=== PATIENT | female | born 1955 | race Caucasian/White ===

== ENCOUNTER 2025-05-12 18:52 | Emergency (ER) | payer MEDICARE, SELFPAY ==
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
[2025-05-12 18:53] VITALS: BP 154/81; PULSE 64; RESP 16; TEMP 36.6; O2SAT 100
--- OUTSIDE RECORDS SUMMARY | 2025-05-12 18:54 | XMS_ITS | Data Portability ---
Author Organization [place] - [facility] [place], Main Office Address [address] [place] [address] Assessment Encounter Date Assessment Date Assessment LastModified by Organization Details LastModified Time 05/17/2023 05/17/2023 Medrol Dosepak right ear impacted with cerumen needs to get that flushed out by ENT or ear drops before any further evaluation blood work has been ordered she will let me know how she is doing about 2 weeks after the Medrol Dosepak all other diagnosis discussed patient agreeable to plan. Risk benefits of diclofenac on a cardiac stroke PA also kidney (GI bleeding discussed she says she only thing that allows her joints to basically function she accepts the risk [email or web address] Not available 05/17/2023 20:23:06 11/20/2023 11/20/2023 Blood work continue current therapy diagnosis assessment plan have been discussed [email or web address] Not available 12/03/2023 09:42:50 Plan of Treatment Reminders Order Date Submit Date Provider Last Modified By Organization Details Last Modified Time Details Appointments None recorded. Lab CBC w/ auto diff 2022 023 [facility] (Lab), [address] [place], [address], 14:58:12 lipid panel, serum 2022 023 [facility] (Lab), [address] [place], [address], 15:01:37 CMP, serum or plasma 2022 023 [facility] (Lab), [address] [place], [address], 3 15:01:57 Referral None recorded. Procedures None recorded. Surgeries None recorded. Imaging None recorded. Medication Orders diclofenac sodium 75 mg tablet,geovani yed release [address] [facility]84, [address], [place], [id number], 4 15:24:01 esomeprazol e magnesium 40 mg capsule,del ayed release [address] [facility]60908, [address], [place], [id number], 4 15:24:01 gabapentin 600 mg tablet [address] [facility]50284, [address], [place], [id number], 4 15:24:01 lorazepam 1 mg tablet 2023 024 [facility] #43611, [address], [place], [id number], 4 09:43:43 metoprolol tartrate 25 mg tablet [address] [facility]11999, [address], [place], [id number], 4 15:24:01 rizatriptan 10 mg tablet [address] [facility]51239, [address], [place], [id number], 4 15:24:01 rosuvastati n 20 mg tablet [address] [facility]92313, [address], [place], [id number], 4 15:24:01 diclofenac sodium 75 mg tablet,geovani yed release [address] [facility]11191, [address], [place], [id number], 3 14:48:37 esomeprazol e magnesium 40 mg capsule,del ayed release [address] [facility]23503, [address], [place], [id number], 3 14:48:37 gabapentin 600 mg tablet [address] [facility]71239, [address], [place], [id number], 3 14:48:37 metoprolol tartrate 25 mg tablet [address] [facility]65578, [address], [place], [id number], 3 14:48:37 rizatriptan 10 mg tablet [address] [facility]07588, [address], [place], [id number], 3 14:48:37 rosuvastati n 20 mg tablet 2022 023 [address] [facility], [address], [place], [id number], 3 14:48:37 Patient TargetsNo targets recorded. Patient InstructionsNo instructions recorded. Reason for Referral None Reported. Results Created Date Observation Date Name Description Value Unit Range Abnormal Flag Note LastModifiedBy Organization Detail LastModifiedTime 05/17/20 23 05/17/2023 CBC/C OMPLE TE BLD COUNT W/DIF F white blood cells 10.2 x10'3 /uL 4.2-10 .8 Not Available [facility] (Lab) [address] [place], [address], 05/17/2023 14:58:11 05/17/20 23 05/17/2023 CBC/C OMPLE TE BLD COUNT W/DIF F red blood cells 4.93 x10'6 /uL 3.80-5 .20 Not Available [facility] (Lab) [address] [place], [address], 05/17/2023 14:58:11 05/17/20 23 05/17/2023 CBC/C OMPLE TE BLD COUNT W/DIF F hemoglobin 14.7 g/dL 12.0-1 5.6 Not Available [facility] (Lab) [address] [place], [address], 05/17/2023 14:58:11 05/17/20 23 05/17/2023 CBC/C OMPLE TE BLD COUNT W/DIF F hematocrit 46.1 % 35.7-4 5.7 high Not Available [facility] (Lab) [address] [place], [address], 05/17/2023 14:58:11 05/17/20 23 05/17/2023 CBC/C OMPLE TE BLD COUNT W/DIF F mean red cell volume 93.5 fL 82.0-9 9.0 Not Available [facility] (Lab) [address] [place], [address], 05/17/2023 14:58:11 05/17/20 23 05/17/2023 CBC/C OMPLE TE BLD COUNT W/DIF F mean red cell hemoglobin 29.8 pg 27.0-3 3.0 Not Available [facility] (Lab) [address] [facility] [place], [address], 05/17/2023 14:58:11 05/17/20 23 05/17/2023 CBC/C OMPLE TE BLD COUNT W/DIF F mean RBC HGB concentratio n 31.9 g/dL 31.0-3 6.0 Not Available [facility] (Lab) [address] [facility] [place], [address], 05/17/2023 14:58:11 05/17/20 23 05/17/2023 CBC/C OMPLE TE BLD COUNT W/DIF F red cell distribution width 13.3 % 11.8-1 5.5 Not Available [facility] (Lab) [address] [place], [address], 05/17/2023 14:58:11 05/17/20 23 05/17/2023 CBC/C OMPLE TE BLD COUNT W/DIF F platelets 224 x10'3 /uL 150-40 0 Not Available [facility] (Lab) [address] [place], [address], 05/17/2023 14:58:11 05/17/20 23 05/17/2023 CBC/C OMPLE TE BLD COUNT W/DIF F mean platelet volume 12.1 fL 9.0-12 .4 Not Available [facility] (Lab) [address] [place], [address], 05/17/2023 14:58:11 05/17/20 23 05/17/2023 CBC/C OMPLE TE BLD COUNT W/DIF F neutrophils 59.3 % 39.0-7 2.0 Not Available [facility] (Lab) [address] [place], [address], 05/17/2023 14:58:11 05/17/20 23 05/17/2023 CBC/C OMPLE TE BLD COUNT W/DIF F lymphocytes 29.6 % 16.0-4 7.0 Not Available [facility] (Lab) [address] [place], [address], 05/17/2023 14:58:11 05/17/20 23 05/17/2023 CBC/C OMPLE TE BLD COUNT W/DIF F monocytes 7.2 % 5.0-12 .0 Not Available [facility] (Lab) [address] [place], [address], 05/17/2023 14:58:11 05/17/2005/17/2023 CBC/C OMPLE TE BLD COUNT W/DIF F eosinophils 2.9 % 1.0-7. 0 Not Available [facility] (Lab) [address] [place], [address], 05/17/2023 14:58:11 05/17/20 23 05/17/2023 CBC/C OMPLE TE BLD COUNT W/DIF F basophils 0.7 % 0.0-2. 0 Not Available [facility] (Lab) [address] [place], [address], 05/17/2023 14:58:11 05/17/2005/17/2023 CBC/C OMPLE TE BLD COUNT W/DIF F immature granulocytes 0.3 % 0.00-0 .50 Not Available [facility] (Lab) [address] [place], [address], 05/17/2023 14:58:11 05/17/2005/17/2023 CBC/C OMPLE TE BLD COUNT W/DIF F neutrophils, absolute count 6.05 x10'3 /uL 1.5-8. 0 Not Available [facility] (Lab) [address] [place], [address], 05/17/2023 14:58:11 05/17/20 23 05/17/2023 CBC/C OMPLE TE BLD COUNT W/DIF F lymphocytes, absolute count 3.03 x10'3 /uL 1.07-3 .43 Not Available [facility] (Lab) [address] [place], [address], 05/17/2023 14:58:11 05/17/20 23 05/17/2023 CBC/C OMPLE TE BLD COUNT W/DIF F monocytes, absolute count 0.74 x10'3 /uL 0.29-0 .99 Not Available [facility] (Lab) [address] [place], [address], 05/17/2023 14:58:11 05/17/2005/17/2023 CBC/C OMPLE TE BLD COUNT W/DIF F eosinophils, absolute count 0.30 x10'3 /uL 0.02-0 .53 Not Available [facility] (Lab) [address] [place], [address], 05/17/2023 14:58:11 05/17/20 23 05/17/2023 CBC/C OMPLE TE BLD COUNT W/DIF F basophils, absolute count 0.07 x10'3 /uL 0.01-0 .08 Not Available [facility] (Lab) [address] [place], [address], 05/17/2023 14:58:11 05/17/20 23 05/17/2023 CBC/C OMPLE TE BLD COUNT W/DIF F immature granulocytes ,absolute 0.03 x10'3 /uL 0.00-0 .05 Not Available [facility] (Lab) [address] [place], [address], 05/17/2023 14:58:11 05/17/20 23 05/17/2023 CBC/C OMPLE TE BLD COUNT W/DIF F nucleated red blood cells 0.0 % -0 Not Available [facility] (Lab) [address] [place], [address], 05/17/2023 14:58:11 05/17/20 23 05/17/2023 CBC/C OMPLE TE BLD COUNT W/DIF F NRBC# 0.00 x10'3 /uL Not Available [facility] (Lab) [address] [place] [address], [address], 05/17/2023 14:58:11 05/17/20 23 05/17/2023 LIPID PANEL cholesterol 185 mg/dL 140-19 9 NIH MARY NSUS RECOM MENDA TION FOR FERNANDA STERO L: ADULT CHILD LOW RISK: <200 <170 BORDE RLINE : <200- 239 ----- HIGH RISK: >240 >200 Not Available [facility] (Lab) [address] [place] [address], [address], 05/17/2023 15:01:37 05/17/20 23 05/17/2023 LIPID PANEL triglyceride s 165 mg/dL 0-150 high NIH MARY NSUS REPOR T RECOM MENDA TION FOR TRIGL YCERI YOEL: ADULT CHILD LOW RISK: <150 ----- BODER LINE: 150-1 99 ----- HIGH RISK: >200 ----- Not Available [facility] (Lab) [address] [place], [address], 05/17/2023 15:01:37 05/17/20 23 05/17/2023 LIPID PANEL HDL cholesterol 67 mg/dL 40- Not Available [facility] (Lab) [address] [place] [address], [address], 05/17/2023 15:01:37 05/17/20 23 05/17/2023 LIPID PANEL LDL cholesterol, calculated 85 mg/dL 0-130 NIH MARY NSUS REPOR T RECOM MENDA TIONS FOR LDL: ADULT CHILD LOW RISK <130 <110 (OPTI MAL LDL) <100 ----- BORDE RLINE : 130-1 59 ----- HIGH RISK: >160 >130 A TRIGL YCERI DE RESUL T >400 INVAL IDATE S THE CALCU LATIO N FOR LDL FRACT IONAT ION - THE LDL RESUL T WILL NOT BE REPOR ARTIE. Not Available [facility] (Lab) [address] [place], [address], 05/17/2023 15:01:37 05/17/20 23 05/17/2023 COMPR EHENS STEPHANIE METAB OLIC PANEL sodium 143 mmol/ L 137-14 5 Not Available [facility] (Lab) [address] [place], [address], 05/17/2023 15:01:57 05/17/20 23 05/17/2023 COMPR EHENS STEPHANIE METAB OLIC PANEL potassium 4.2 mmol/ L 3.5-5. 1 Not Available [facility] (Lab) [address] [place], [address], 05/17/2023 15:01:57 05/17/20 23 05/17/2023 COMPR EHENS STEPHANIE METAB OLIC PANEL chloride 106 mmol/ L 98-107 Not Available [facility] (Lab) [address] [place], [address], 05/17/2023 15:01:57 05/17/20 23 05/17/2023 COMPR EHENS STEPHANIE METAB OLIC PANEL carbon dioxide 29 mmol/ L 22-30 Not Available [facility] (Lab) [address] [place], [address], 05/17/2023 15:01:57 05/17/20 23 05/17/2023 COMPR EHENS STEPHANIE METAB OLIC PANEL anion gap 12.2 mmol/ L 14-22 low Not Available [facility] (Lab) [address] [place], [address], 05/17/2023 15:01:57 05/17/20 23 05/17/2023 COMPR EHENS STEPHANIE METAB OLIC PANEL glucose 90 mg/dL 70-99 Not Available [facility] (Lab) [address] [place], [address], 05/17/2023 15:01:57 05/17/20 23 05/17/2023 COMPR EHENS STEPHANIE METAB OLIC PANEL BUN 26 mg/dL 8-19 high Not Available [facility] (Lab) [address] [facility] [place], [address], 05/17/2023 15:01:57 05/17/20 23 05/17/2023 COMPR EHENS STEPHANIE METAB OLIC PANEL creatinine 0.62 mg/dL 0.66-1 .25 low Not Available [facility] (Lab) [address] [place], [address], 05/17/2023 15:01:57 05/17/20 23 05/17/2023 COMPR EHENS STEPHANIE METAB OLIC PANEL GFR >60 Refer ence Range : Adel ge GFR Healt hy Adult : >60 mL/mi n/1.7 3 m2 Chron ic Kidne y Disea se: 15-60 mL/mi n/1.7 3 m2 Kidne y Failu re: <15/m L/min /1.73 m2 www.n iddk. nih.g ov The MDRD study equat ion has not been valid ated in child rain <18 years of age; pregn ant women ; the elder ly >85 years of age; or in some racia l or ethni c subgr oups, such as [facility] nics. Outsi de the valid ated sayda eters , estim ated GFR is less accur ate, requi ring clini isrrael judgm ent on a case- by-ca se basis . Clini isrrael inter preta tion for other races and ages must be made by the clini teja. The MDRD study equat ion has not been valid ated for the evalu ation of serum creat inine relat ed to nutri [place] l statu s or medic ation usage . For perso ns <18 years of age, a pedia tric GFR calcu lator is avail able on the [facility] websi te: https ://mary w.mireille estrella.o rg/pr ofess ional s/kdo qi/gf r_cal culat or Not Available [facility] (Lab) [address] [place], [address], 05/17/2023 15:01:57 05/17/20 23 05/17/2023 COMPR EHENS STEPHANIE METAB OLIC PANEL alkaline phosphatase 136 U/L 38-126 high Not Available [facility] (Lab) [address] [place], [address], 05/17/2023 15:01:57 05/17/20 23 05/17/2023 COMPR EHENS STEPHANIE METAB OLIC PANEL alanine aminotransfe rase 20 U/L 0-35 Not Available [facility] (Lab) [address] [place], [address], 05/17/2023 15:01:57 05/17/20 23 05/17/2023 COMPR EHENS STEPHANIE METAB OLIC PANEL aspartate aminotransfe rase 25 U/L 15-37 Not Available [facility] (Lab) [address] [place], [address], 05/17/2023 15:01:57 05/17/20 23 05/17/2023 COMPR EHENS STEPHANIE METAB OLIC PANEL bilirubin, total 0.40 mg/dL 0.20-1 .30 Not Available [facility] (Lab) [address] [place], [address], 05/17/2023 15:01:57 05/17/20 23 05/17/2023 COMPR EHENS STEPHANIE METAB OLIC PANEL calcium 9.8 mg/dL 8.4-10 .2 Not Available [facility] (Lab) [address] [place], [address], 05/17/2023 15:01:57 05/17/20 23 05/17/2023 COMPR EHENS STEPHANIE METAB OLIC PANEL total protein 7.5 g/dL 6.3-8. 2 Not Available [facility] (Lab) [address] [place], [address], 05/17/2023 15:01:57 05/17/20 23 05/17/2023 COMPR EHENS STEPHANIE METAB OLIC PANEL albumin 4.5 g/dL 3.0-4. 4 high Not Available [facility] (Lab) [address] [place], [address], 05/17/2023 15:01:57 05/17/20 23 05/17/2023 COMPR EHENS STEPHANIE METAB OLIC PANEL globulin 3.0 g/dL 2.6-4. 2 Not Available [facility] (Lab) [address] [place], [address], 05/17/2023 15:01:57 05/17/20 23 05/17/2023 COMPR EHENS STEPHANIE METAB OLIC PANEL A/G ratio 1.5 ratio 1.0-2. 0 Not Available [facility] (Lab) [address] [place], [address], 05/17/2023 15:01:57 06/28/20 23 06/27/2023 MAMMO , scree jose, digit al, bilat eral [facility] [address] [facility] [place] [address] Patien t Name: AYDE NAVARRO [facility] ion #: [id number] Sex: F : 1954 5 Dictat ed By: Michoacano watts Attend ing Physic zachariah: MICHOACANO FRANCO Orderi Physic zachariah: MICHOACANO FRANCO Exam Date: 2022 14:54 PM Exam Name: MG SCRSonia BREAST CALOS BILAT Admitt ing Diagno sis(es ): CLINIC AL HISTOR Y: Screen ing exam, no breast compla ints. No person al histor y of breast cancer or prior breast interv ention . Family histor y of breast cancer in her mother at age 35. COMPAR UTE: Prior mammog remedios dated 05/12/20 21, 019, and 2015. TECHNI QUE: Digita l breast tomosy nthesi s was perfor med. Synthe sized CC and MLO images were create d from the tomosy nthesi s images . CAD was utiliz ed. FINDIN GS: The breast s are almost entire ly fatty (categ ory A). No suspic ious mass, jojo ectura l distor tion, or suspic ious microc alcifi cation s are seen. The axilla e, skin and nipple s are normal . IMPRES SARI: Normal mammog ash. RECOMM ENDATI ONS: In the absenc e of new breast compla ints, annual screen ing is recomm ended. The patien t will be notifi ed of the mammog lucretia result s per hospit al protoc ol. BI-RAD S CATEGO RY: 1: Negati ve. Electr onical ly Signed by: Michoacano watts at 2022 16:04: 20 PM Page 1 [email or web address] [facility] (Imaging) [address] [place], [address], 11/09/2023 16:24:36 Result Notes Documentation Provider Name and Address Organization Details Recorded Time Mammo, Screening, Digital, Bilateral : [facility] [address] [place] [address] Patient Name: AYDE NAVARRO Sex: F : 1955 Dictated By: Yelitza Khan Attending Physician: YELITZA FRANCO Ordering Physician: YELITZA FRANCO Exam Date: 06/27/2023 14:54 PM Exam Name: SCRSonia BREAST CALOS BILAT Admitting Diagnosis(es): CLINICAL HISTORY: Screening exam, no breast complaints. No personal history of breast cancer or prior breast intervention. Family history of breast cancer in her mother at age 35. COMPARISON: Prior mammograms dated 05/12/2021, 05/28/2019, and 10/16/2016. TECHNIQUE: Digital breast tomosynthesis was performed. Synthesized CC and MLO images were created from the tomosynthesis images. CAD was utilized. FINDINGS: The breasts are almost entirely fatty (category A). No suspicious mass, architectural distortion, or suspicious microcalcifications are seen. The axillae, skin and nipples are normal. IMPRESSION: Normal mammogram. RECOMMENDATIONS: In the absence of new breast complaints, annual screening is recommended. The patient will be notified of the mammography results per hospital protocol. BI-RADS CATEGORY: 1: Negative. Page 1 Yelitza Franco MD [address] [place] [address], [facility] [address], [place], [address], [facility] [employer] [facility] 11/09/2023 16:24:36 Problems Name Problem SNOMED Code Status Onset Date Resolution Date Notes Provider Name and Address Organization Details Recorded Time Disorder of trunk 263191506 Active Not Available [facility] 3 09:32:31 Hyperchol esterolem ia 31530195 Active 2016 Not Available [facility] 3 09:32:31 Pain of right shoulder joint 45115550861 029939 Active 2021 Not Available [facility] 3 09:32:31 Heartburn 95556071 Active Not Available [facility] 3 09:32:31 Gastroeso phageal reflux disease 653392199 Active Not Available [facility] 3 09:32:31 Low back pain 150170639 Active Not Available [facility] 3 09:32:31 Dog bite of forearm 691111606 Active 2022 Not Available [facility] 3 09:32:32 Polyp of vagina 13048074 Completed Not Available [facility] 3 01:12:34 Tear of medial meniscus of knee 888024947 Active 2021 Not Available [facility] 3 09:32:32 Tear of medial meniscus of knee 351350199 Active 2021 Not Available [facility] 3 09:32:32 Tear of lateral meniscus of knee 291500873 Active 2021 Not Available [facility] 3 09:32:32 Tear of lateral meniscus of knee 651947310 Active 2021 Not Available [facility] 3 09:32:32 Knee pain Active Not Available [facility] 3 09:32:32 Osteoarth ritis of right hip joint 24680064638 9107 Active 2021 Not Available [facility] 3 09:32:32 Osteoarth ritis of right knee joint 75142175054 9100 Active 2021 Not Available [facility] 3 09:32:32 Vitamin D deficienc y 70461260 Active Not Available [facility] 3 09:32:32 Dyslipide luan 806426829 Active Not Available [facility] 3 09:32:32 Migraine 21505712 Active 2016 Not Available [facility] 3 09:32:32 Pain of right knee joint 24453758107 4100 Active 2021 Not Available [facility] 3 09:32:32 Pain of right knee region 85174515494 4105 Active 2021 Not Available [facility] 3 09:32:32 Anxiety 88271888 Active Not Available [facility] 3 09:32:32 Dysuria 86157984 Active 2022 Not Available [facility] 3 09:32:32 Essential hypertens ion 80636104 Active Not Available [facility] 3 09:32:32 Primary fibromyal saleem syndrome 33459984 Active Not Available [facility] 3 09:32:32 Pain of ear 642571585 Active 2022 Not Available [facility] 3 09:32:32 Sciatica 20975875 Active 2022 Not Available [facility] 3 09:32:31 Hyperlipi demia 24786949 Active 2023 Ashlyn escobar MD [address] [facility], [place] [address], [place], [address] , [facility] 4 14:07:07 Gastroeso phageal reflux disease without esophagit is 283859932 Active 2023 Ashlyn escobar MD [address] [facility], [place], [address] , [facility] 4 14:07:25 Fibromyal saleem 550710364 Active 2023 Ashyln escobar MD [address] [facility], [place], [address] , [employer] 4 14:07:33 Problem Notes None recorded. Procedures Surgical History Date Name Laterality Status Provider Name and Address Organization Details Recorded Time 07/04/20 Colonoscopy completed Not Available [facility] 01/02/2023 01:05:31 Cholecystectomy completed Not Available [facility] 01/02/2023 01:05:31 Hysterectomy completed Not Available [facility] 01/02/2023 01:05:31 Appendectomy completed Not Available [facility] 01/02/2023 01:05:31 completed Not Available [facility] 01/02/2023 01:05:31 completed Not Available [facility] 01/02/2023 01:05:31 Hysterectomy, Partial completed Not Available [facility] 01/02/2023 01:05:31 completed Not Available [facility] 01/02/2023 01:05:31 Endoscopy completed Not Available [facility] 01/02/2023 01:05:31 Imaging Results None recorded. Procedure Notes None recorded. Medical Equipment None Reported. Allergies Allergen ID Allergen Name Allergen Category Reaction Reaction Severity Criticality Documentation Date Start Date Code Code System Note Provider Name and Address Organization Details Recorded Time 2068 Product containin g penicilli n (product) medicatio n Not available Not available Not available 01/02/2023 21171 8001 SNOMED sleep y Not Available [facility] 01:20:43 Medications Name Sig Start Date Stop Date Status Note LastModified by Organization Details LastModified Time cyclobenz aprine 10 mg tablet Take 1 tablet every day by oral route at bedtime. 05/15 completed Not Available Not Available Not Available methocarb manuel 500 mg tablet TK 2 TS PO Q 6 H PRN 11/21 completed Not Available Not Available Not Available prednison e 10 mg tablet 11/16 completed Not Available Not Available Not Available gabapenti n 600 mg tablet TAKE 1 TABLET BY MOUTH THREE TIMES DAILY active Not Available Not Available No t Available doxycycli ne hyclate 100 mg capsule Take 1 capsule twice a day by oral route for 7 days. 05/17 completed Not Available Not Available Not Available clindamyc in HCl 300 mg capsule TK ONE C PO Q 8 H active Not Available Not Available No t Available atorvasta tin 10 mg tablet TAKE 1 TABLET BY MOUTH EVERY DAY active Not Available Not Available No t Available azithromy benji 250 mg tablet Take 1 dose pk by oral route as directed . 04/03 completed Not Available Not Available Not Available nitroglyc hayes 0.3 mg sublingua l tablet Place by sublingu al route as needed. active Not Available Not Available No t Available ibuprofen 800 mg tablet 05/15 completed Not Available Not Available Not Available meloxicam 15 mg tablet 03/28 completed Not Available Not Available Not Available bupivacai ne HCl 0.5 % (5 mg/mL) injection solution Take 20 mg by injectio n route. 06/15 completed Not Available Not Available Not Available rizatript an 10 mg tablet TAKE 1 TABLET BY MOUTH AT ONSET OF HEADACHE . NO MORE THAN 3 TABLETS IN 24 HOURS active Not Available Not Available No t Available sumatript an 50 mg tablet TAKE 1 TABLET BY MOUTH AT ONSET OF HEADACHE ( NO MORE THAN 2 TABLETS IN 12 HOURS) active Not Available Not Available No t Available acetamino phen 300 mg-codein e 30 mg tablet Take 1 tablet 3 times a day by oral route as needed. 05/15 completed Not Available Not Available Not Available tramadol 50 mg tablet TAKE 1-2 TABLETS BY MOUTH WITH TYLENOL THREE TIMES DAILY 01/26 completed Not Available Not Available Not Available prednison e 10 mg tablets in a dose pack Take 1 tab by mouth, 3 times a day for 3 daysTake 1 tab by mouth 2 times a day for 2 daysTake 1 tab by mouth once a day for 1 day 11/16 completed Not Available Not Available Not Available nortripty line 25 mg capsule TK ONE C PO HS 03/28 completed Not Available Not Available Not Available lorazepam 0.5 mg tablet TAKE 2 TABLETS BY MOUTH TWICE DAILY 01/09 completed Not Available Not Available Not Available Kenalog 10 mg/mL suspensio n for injection In office injectio n administ ered by the provider 06/15 completed [facility]: [id number] 4-20 Not Available Not Available Not Available esomepraz ole magnesium 40 mg capsule,d elayed release TAKE 1 CAPSULE BY MOUTH EVERY DAY active Not Available Not Available No t Available diclofena c sodium 75 mg tablet,de layed release TAKE 1 TABLET BY MOUTH TWICE DAILY active Not Available Not Available No t Available ergocalci ferol (vitamin D2) 1,250 mcg (50,000 unit) capsule TK 1 C PO Q WEEK 01/02 completed pt stopped taking this on her own Not Available Not Available Not Available lorazepam 1 mg tablet TAKE 1 TABLET BY MOUTH TWICE DAILY 2023 active last refill: 05/17 next OV: 11/08 Not Available Not Available Not Available methylpre dnisolone 4 mg tablets in a dose pack FOLLOW PACKAGE DIRECTIO NS 11/20 completed Not Available Not Available Not Available Relpax 20 mg tablet TAKE 1 BY MOUTH AT ONSET OF HEADACHE , MAY REPEAT IN 2 HOURS IF NEEDED, ONLY 2 TABLETS IN 12 HOURS 09/06 completed Not Available Not Available Not Available cyclobenz aprine 5 mg tablet TAKE 1 TABLET BY MOUTH EVERY 8 HOURS NEEDED 11/20 completed Not Available Not Available Not Available Premarin 0.625 mg/gram vaginal cream I 1 APL VAGINALL Y Q WEEK 01/02 completed Not Available Not Available Not Available rosuvasta tin 10 mg tablet TK 1 T PO QD 01/28 completed changed to 20mg at office visit 01/28/18 Not Available Not Available Not Available rosuvasta tin 20 mg tablet TAKE 1 TABLET BY MOUTH EVERY DAY active Not Available Not Available No t Available metoprolo l tartrate 25 mg tablet TAKE 1 TABLET BY MOUTH TWICE DAILY active Not Available Not Available No t Available duloxetin e 60 mg capsule,d elayed release TK 1 C PO QD 03/28 completed Not Available Not Available Not Available Aspir-81 QD 01/09 completed Not Available Not Available Not Available lidocaine (PF) 5 mg/mL (0.5 %) injection solution Take 20 mg by injectio n route. 06/15 completed Not Available Not Available Not Available Zostavax (PF) 19,400 unit/0.65 mL subcutane ous suspensio n ADM 0.65ML SC UTD 01/02 completed Not Available Not Available Not Available Vitals Date Recorded Body mass index (BMI) Body height Heart rate Body temperature Body weight Systolic And Diastolic Provider Name and Address Organization Details Last Updated DateTime 3 33.2 kg/m2 168.91 cm 62 /min 97.9 [degF] 04869.8 1 g 138/70 mm[Hg] Not Available [facility] 3 01:11:12 Date Recorded Body height Body mass index (BMI) Body weight Body temperature Heart rate Respiratory rate Oxygen saturation Oxygen saturation in Arterial blood by Pulse oximetry Systolic And Diastolic Provider Name and Address Organization Details Last Updated DateTime 4 168.91 cm 28.6 kg/m2 63002.3 5 g 96.4 [degF] 62 /min 24 /min 98 % 98 % 160/80 mm[Hg] Janette Kapoor RN [facility] [employer] [facility] 4 11:29:05 Date Recorded Body height Body mass index (BMI) Body weight Body temperature Heart rate Systolic And Diastolic Provider Name and Address Organization Details Last Updated DateTime 3 168.91 cm 31.2 kg/m2 16754.1 g 97.2 [degF] 67 /min 132/80 mm[Hg] EVAN Munguia [facility] [employer] [facility] 3 13:26:52 Date Recorded Body mass index (BMI) Body height Heart rate Body temperature Body weight Systolic And Diastolic Provider Name and Address Organization Details Last Updated DateTime 2 33.9 kg/m2 168.91 cm 61 /min 97.7 [degF] 46900.1 7 g 134/80 mm[Hg] Not Available [facility] 3 01:11:12 Date Recorded Body mass index (BMI) Body height Body weight Provider Name and Address Organization Details Last Updated DateTime 07/10/2022 31.8 kg/m2 168.91 cm 14201.47 g Not Available [facility] 01/02/2023 01:11:16 Social History Question Answer Notes LastModified by Organization Details LastModified Time Tobacco Smoking Status Former Smoker quit 2002 Not Available [facility] 01/02/2023 01:04:35 Do You Have An Advance Directive? No Information Provided MIGRATION.0301 [id number] Information not available 01/02/2023 Are You Blind Or Do You Have Difficulty Seeing? Yes Wears Glasses MIGRATION.030 [id number] Information not available 01/02/2023 What Is Your Level Of Caffeine Consumption? Moderate MIGRATION.0301 107367 Information not available 01/02/2023 How Much Tobacco Do You Chew? None MIGRATION.0301 538277 Information not available 01/02/2023 In The 14 Days Before Symptom Onset, Have You Had Close Contact With A Laboratory-conf irmed COVID-19 While That Case Was Ill? No MIGRATION.0301 [id number] Information not available 01/02/2023 In The 14 Days Before Symptom Onset, Have You Had Close Contact With A Person Who Is Under Investigation For COVID-19 While That Person Was Ill? No MIGRATION.0301 [id number] Information not available 01/02/2023 Are You Deaf Or Do You Have Serious Difficulty Hearing? No MIGRATION.0301 668153 Information not available 01/02/2023 What Type Of Diet Are You Following? REGULAR MIGRATION.0301 624679 Information not available 01/02/2023 Which Illicit Or Recreational Drugs Have You Used? None MIGRATION.0301 425712 Information not available 01/02/2023 What Is The Highest Grade Or Level Of School You Have Completed Or The Highest Degree You Have Received? [id number] MIGRATION.0301 715347 Information not available 01/02/2023 Have There Been Any Changes To Your Family Or Social Situation? No MIGRATION.0301 854030 Information not available 01/02/2023 What Is The Fluoride Status Of Your Home? Unknown MIGRATION.0301 387398 Information not available 01/02/2023 When Did You Quit Smoking? 16+yearssincelast cigarette MIGRATION.0301 481233 Information not available 01/02/2023 Are There Any Guns Present In Your Home? No MIGRATION.0301 223055 Information not available 01/02/2023 Do You Use Insect Repellent Routinely? No MIGRATION.0301 334898 Information not available 01/02/2023 Where Do You Live? [facility] MIGRATION.0301 942076 Information not available 01/02/2023 Do You Have A Medical Power Of Student Recruiter? No MIGRATION.0301 477059 Information not available 01/02/2023 What Was The Date Of Your Most Recent Tobacco Screening? 05/17/2023 [email or web address] Information not available 05/17/2023 Do You Have Any Pets? Yes MIGRATION.0301 334293 Information not available 01/02/2023 What Is Your Relationship Status? MIGRATION.0301 261527 Information not available 01/02/2023 Do You Use Your Seat Belt Or Car Seat Routinely? Yes MIGRATION.0301 725882 Information not available 01/02/2023 Do You Have Smoke And Carbon Monoxide Detectors In Your Home? Yes MIGRATION.0301 067025 Information not available 01/02/2023 Are You Passively Exposed To Smoke? Yes MIGRATION.0301 818592 Information not available 01/02/2023 Are There Any Smokers In Your House? No MIGRATION.0301 533625 Information not available 01/02/2023 How Much Tobacco Do You Smoke? No MIGRATION.0301 751962 Information not available 01/02/2023 What Types Of Sporting Activities Do You Participate In? None MIGRATION.0301 289575 Information not available 01/02/2023 Do You Use Sunscreen Routinely? No MIGRATION.0301 227607 Information not available 01/02/2023 Has Tobacco Cessation Counseling Been Provided? No MIGRATION.0301 485622 Information not available 01/02/2023 How Many Years Have You Smoked Tobacco? 0 MIGRATION.0301 756123 Information not available 01/02/2023 Have You Recently Traveled Abroad? No MIGRATION.0301 091205 Information not available 01/02/2023 Do You Have Difficulty Walking Or Climbing Stairs? Yes MIGRATION.0301 732858 Information not available 01/02/2023 Do You Have Any Dietary Restrictions? No MIGRATION.0301 573250 Information not available 01/02/2023 Sex: Female Functional Status Question Answer Note LastModified by Organizat ion Details LastModified Time Do you use any illicit or recreational drugs? No MIGRATION.06829 48082 Information not available 01/02/2023 Do you or have you ever used any other forms of tobacco or nicotine? No MIGRATION.75354 06200 Information not available 01/02/2023 What is your level of alcohol consumption? None MIGRATION.09232 20874 Information not available 01/02/2023 Do you or have you ever used smokeless tobacco? Never used smokeless tobacco MIGRATION.25283 41381 Information not available 01/02/2023 Do you have transportation difficulties? No MIGRATION.81157 82880 Information not available 01/02/2023 Are you able to walk? [place] MIGRATION.21923 25256 Information not available 01/02/2023 Do you have difficulty doing errands alone? No MIGRATION.36230 44859 Information not available 01/02/2023 Are you able to care for yourself? Yes MIGRATION.39960 91546 Information not available 01/02/2023 What is your occupation? disabled MIGRATION.69435 08905 Information not available 01/02/2023 Do you have difficulty dressing or bathing? Yes MIGRATION.68927 53499 Information not available 01/02/2023 Do you or have you ever used e-cigarettes or vape? Never used electronic cigarettes MIGRATION.65290 34285 Information not available 01/02/2023 What is your exercise level? Moderate walks dogs MIGRATION.18310 76614 Information not available 01/02/2023 Mental Status Question Answer Note LastModified by Organizat ion Details LastModified Time Do you feel stressed (tense, restless, nervous, or anxious, or unable to sleep at night)? [id number] MIGRATION.[id number] 26 Information not available 01/02/2023 Do you have difficulty concentrating, remembering or making decisions? No MIGRATION.09934255 26 Information not available 01/02/2023 Family History Relationship Description Onset Age of this Age Resolved Age Notes LastModified by Organization Details LastModified Time Mother Heart disease MIGRATION.365 [id number] Not available 01/02/2023 01:05:36 Mother Cerebrovascu lar accident MIGRATION.251 [id number] Not available 01/02/2023 01:05:36 Mother Hypertensive disorder MIGRATION.109 [id number] Not available 01/02/2023 01:05:36 Mother Malignant tumor of breast MIGRATION.926 [id number] Not available 01/02/2023 01:05:36 Mother Family history of stroke MIGRATION.197 [id number] Not available 01/02/2023 01:05:36 Notes:blood clots in legs/sirena ngs Medical History Condition Response BLINDNESS N NERVE DISEASE Y RHEUMATIC FEVER N BLADDER PROBLEMS N KIDNEY STONES N OTHER # 1 N POLIO N LUNG DISEASE/DISORDER N RADIATION / CHEMOTHERAPY N COPD N Other # 2 N BLOOD DISEASES N SURGERY N EAR OR HEARING PROBLEMS N MUMPS N BOWEL PROBLEMS N DEPRESSION (INCLUDING POST ) N STROKE/TIA N ULCERS N BENIGN PROSTATIC HYPERPLASIA N MEASLES N MYOCARDIAL INFARCTION N OBESITY N GERD/NAUSEA N ANEURYSM N URINARY/BLADDER/KIDNEY PROBLEMS N INPATIENT PSYCH CARE N CORONARY ARTERY DISEASE (CAD) N ADDICTION CONCERNS N ENDOMETRIOSIS N Impotence N USE OF BLOOD THINNERS N SKIN PROBLEMS N GASTROINTESTINAL DISORDER N PERIPHERAL VASCULAR DISEASE N MUSCLE,JOINT OR BONE PROBLEMS N GASTROINTESTINAL BLEEDING N BLOOD CLOTS N ASTHMA N CATARACTS N ERECTILE DYSFUNCTION N VARICOSITIES N GI PROBLEMS N Low Testosterone N INFERTILITY N AIDS/HIV N LIVER DISEASE N MALE HYPOGONADISM N HYPERTENSION Y Deficiency N ANXIETY DISORDER Y BLOOD TRANSFUSION N ANEMIA/BLOOD DISORDER N CHRONIC EAR INFECTIONS N BRONCHITIS N TUBERCULOSIS N GLAUCOMA N DIVERTICULITIS N SLEEP APNEA N CHICKENPOX N INFECTIOUS DISEASE N HEART ARRHYTHMIA N PROSTATE N INSOMNIA N HIGH CHOLESTEROL / HYPERLIPIDEMIA Y HYPERTHYROIDISM N EYE PROBLEMS N NEUROLOGICAL PROBLEMS N EDEMA N CHRONIC PAIN SYNDROME N HYPOTHYROIDISM N CAROTID BLOCKAGE N CONSTIPATION N BACK / NECK PROBLEMS N HAVE YOU BEEN HOSPITALIZED OR SEEN IN [facility] IN THE PAST YEAR ? N ATHEROSCLEROSIS N BREAST PROBLEMS N DIALYSIS N ECZEMA N OSTEOPOROSIS N ARTHRITIS Y APPENDICITIS N DIABETES, TYPE N BAD TEETH N ENT N HEARTBURN / REFLUX N AUTISM SPECTRUM DISORDER (ASD) N HEPATITIS / LIVER DISEASE N PULMONARY DISEASE N GOUT N SLEEP DISORDER N ALZHEIMER'S DISEASE N Brain Problems N HERPES N DEMENTIA N HEADACHES/MIGRAINES Y SEIZURES/EPILEPSY N VASCULAR DISEASE N PACEMAKER N Blood Disorder N DIZZINESS N HEART DISEASE/HEART PROBLEMS N KIDNEY DISEASE N MULTIPLE SCLEROSIS N CARDIAC ARRHYTHMIA N CANCER: SPECIFY N ANESTHESIA COMPLICATIONS N ATRIAL FIBRILLATION N Gall Stones N PULMONARY EMBOLISM N AUTOIMMUNE DISEASE N Gynecological History Statement/Question Response Date of Last Pap Date of Last Mammogram 05/12/2021 Current Control Method Hysterectom y Date of Last Colonoscopy Most Recent Bone Density Obstetrics History GPAL:G 4 P 3 0 1 3 Type Value Full Term 3 Induced 1 Living 3 Total 4 Past Encounters Encounter ID Performer Location Encounter Start Date Encounter Closed Date Diagnosis/Indication Diagnosis SNOMED-CT Code Diagnosis ICD10 Code Diagnosis Note [id number] Yelitza Franco MD [facility] [address] [place] [address] 01/09/2021 00:00:00 01/09/2021 11:08:03 [id number] Yelitza Franco MD [facility] [address] [facility] [address] [place] [address] 05/09/2021 00:00:00 05/21/2021 21:23:09 [id number] Yelitza Franco MD [facility] [address] [facility] [address] [place] [address] 08/08/2021 00:00:00 08/08/2021 21:20:23 [id number] Yelitza Franco MD [facility] [address] [facility] [address] [place] [address] 01/26/2022 00:00:00 01/28/2022 11:59:34 [id number] Yelitza Franco MD [facility] [address] [facility] [address] [address] 04/04/2022 00:00:00 05/07/2022 16:16:14 [id number] Yelitza Franco MD [facility] [address] [address] 04/09/2022 00:00:00 04/09/2022 21:01:46 [id number] Jerry Estrada MD [facility] [address] [address] 04/17/2022 00:00:00 04/17/2022 09:25:03 [id number] Jerry Estrada MD [facility] [address] [address] 05/22/2022 00:00:00 05/22/2022 10:23:05 [id number] Yelitza Franco MD [facility] [address] [place] [address]., [address] [address] 06/15/2022 00:00:00 06/24/2022 12:01:34 [id number] Jerry Estrada MD [facility] [address] [address] 07/10/2022 00:00:00 07/10/2022 10:16:42 [id number] Yelitza Franco MD [facility] Internal [facility] [address] [address] 11/16/2022 00:00:00 11/16/2022 15:32:56 [id number] Yelitza Franco MD [facility] Internal [facility] [address] [address] 05/17/2023 12:21:31 05/17/2023 13:57:57 Essential hypertension 96198110 I10 Hypercholesterolemia 136 79888 E78.00 Renewal of prescription 631080161 Z76.0 Migraine 62615181 G43.90 9 Anxiety 41872462 F41.9 Primary fi bromyalgia syndrome 95561801 M79.7 [id number] Yelitza Franco MD [facility] [address] [address] 11/20/2023 10:58:48 11/20/2023 12:05:00 Dyslipidemia 126223108 E78.5 Essential hypertension 25290656 I10 Renewal of prescription 307318149 Z76.0 Migraine 51173853 G43.90 9 Anxiety 44492286 F41.9 Gastroesop hageal reflux disease 955662672 K21.9 Primary fi bromyalgia syndrome 82626879 M79.7 Health Concerns Section Related Observation LastModified by Organization Detai ls LastModified Time None Recorded Concern Status LastModified by Organization Details LastModified Time None Recorded Advance Directives Directive N: information provided Payers Insurance Date Sequence Insurance Name Policy Number Policy Giron Covered Member ID Giron Member ID Guarantor Name 09/22/2024 1 [facility] (MEDICARE REPLACEMENT/A DVANTAGE - HMO) [id number] Ayde Navarro [id number] Ayde Navarro 09/22/2024 1 [facility] (MEDICARE REPLACEMENT/A DVANTAGE - PPO) [id number] Ayde Navarro [id number] Ayde Navarro 02/21/2024 1 [facility] - MEDICARE COMPLETE FOCUS PLAN (MEDICARE REPLACEMENT PPO) [id number] Ayde Navarro [id number] Ayde Navarro Notes Date Note Type Note Provider Name and Address Organization Details Recorded Time 07/10/2022 text/html Hip(s)Reported bypatient.Location:r ight Quality:throbbing; deep; worsening Severity:moderate Timing:chronic; recurrent Alleviating Factors:lying down; heat; ice; rest; exercise Aggravating Factors:walking; bending/squatting; going from sit to stand Associated Symptoms:no numbness; no tingling; no redness; no ecchymosis; no catching/locking; no popping/clicking; no buckling; no instability; no radiation down leg; no drainage; no fever; no chills; no weight loss; no change in bowel/bladder habits;weakness;swel ling;grinding Not Available [facility] 07/10/2022 10:16:42 05/17/2023 text/html Anxiety doing fi ne current medicine. Migraines stable hyperlipidemia try to follow a low-fat diet no side effects with the medications tinnitus right ear with decreased hearing. Sciatica symptoms right leg for about a week without trauma no bowel or bladder incontinence no numbness. Fibromyalgia type symptoms doing well on gabapentin Yelitza Franco MD [address], [address], [place], [address], [facility] 05/17/2023 20:23:25 11/20/2023 text/html Fibromyalgia symptoms have been doing fine with her gabapentin. Anxiety lorazepam controlled osteoarthritis she has used diclofenac as well and seems to be doing okay. Migraines stable on current medical regimen dyslipidemia low-fat diet and rosuvastatin Yelitza Franco MD [address], [place], [address], [facility] 12/03/2023 09:43:39 OBGyn Episode No OBEpisode recorded.
--- OUTSIDE RECORDS SUMMARY | 2025-05-12 18:55 | XMS_ITS | Data Portability ---
Author Organization JUAN ALONDRATirso Nelson Address [address] [facility] [place] [address] Care Team Providers Care Adult Basic Education Manager Name Role Phone YELITZA FRANCO Primary Care Provider Assessment Encounter Date Assessment Date Assessment LastModified by Organization Details LastModified Time 03/06/2024 03/06/2024 Refuses immunizations we will have to get her old records to see about mammograms and colon cancer screening continue current therapy blood work ordered follow-up 4 months. [email or web address] Not available 03/22/2024 17:57:16 09/01/2024 09/01/2024 blood work. Flu shot. Refill nitroglycerin. Refuses stress testing she says she has keeps it on hand but she rarely has to use it. Healthy lifestyle care instructions. She was advised to stay up-to-date on all immunizations but she refuses several she will follow up with me in 4 months mammogram Cologuard. [email or web address] Not available 09/01/2024 13:26:39 12/29/2024 12/29/2024 Z-Brandin. Continue current therapy. Mammogram. CBC CMP lipid. Follow up 4 months. Not available 01/02/2025 14:41:12 Plan of Treatment Reminders Order Date Submit Date Provider Last Modified By Organization Details Last Modified Time Details Appointments None recorded. Lab lipid panel, serum 2024 025 EDWARDO [facility], [address] [address], [place], [address], 06:25:35 CMP, serum or plasma 2024 025 EDWARDO [facility], [address], [address], [place], [address], 5 06:25:36 CBC w/ auto diff 2024 025 EDWARDO [facility], [address], [address], [place], [address], 5 06:25:37 noninvasive colorectal cancer DNA + occult blood screening, QL, stool [address] (Cologuard Orders Only), [address], [address], [place], [address], 4 02:34:08 lipid panel, serum 2023 024 EDWARDO [facility], [address], [facility] [address], [place], [address], 4 08:32:03 CMP, serum or plasma 2023 024 EDWARDO [facility], [address], [facility] [address], [place], [address], 4 08:32:05 CBC w/ auto diff 2023 024 EDWARDO [facility], [address], [facility] [address], [place], [address], 4 08:32:06 CBC w/ auto diff 2023 024 [email or web address] [facility], [address], [address], [place], [address], 4 12:35:16 lipid panel, serum 2023 024 [email or web address] [facility], [address], [address], [place], [address], 12:35:00 CMP, serum or plasma 2023 [facility], [address], [address], [place], [address], 12:35:09 Referral None recorded. Procedures colonoscopy screening (PROC) 2023 [facility], [address], [address], [place], [address], 12:24:57 Surgeries None recorded. Imaging MAMMO, screening, digital, bilateral 2023 [facility], [address], [address], [place], [address], 15:04:17 MAMMO, screening, digital, bilateral 2023 [facility] (Imaging), [address], [place], [address], 12:25:15 Medication Orders Zithromax Z-Brandin 250 mg tablet 2024 025 [email or web address] [id number], [address], [place], [id number], 5 12:08:02 nitroglycer in 0.3 mg sublingual tablet [address] [id number], [address], [place], [id number], 12:48:21 Patient TargetsNo targets recorded. Patient Instructions Encounter Date Encounter Id Patient Instructions Last Modified By Organization Details Last Modified Time 09/01/2024 [id number] A healthy lifestyle: care instructions [email or web address] Not available 09/01/2024 12:48:21 12/29/2024 [id number] A healthy lifestyle: care instructions [email or web address] Not available 12/29/2024 12:08:02 Reason for Referral None Reported. Results Created Date Observation Date Name Description Value Unit Range Abnormal Flag Note LastModifiedBy Organization Detail LastModifiedTime 09/01/2009/02/2024 LIPID PANEL cholesterol, total 157 mg/dL 100-19 9 Not Available [facility] ([facility]) [address] [place], [address], 09/02/2024 08:32:03 09/01/2009/02/2024 LIPID PANEL triglyceride s 154 mg/dL 0-149 above high normal Not Available [facility] ([facility]) [address] [place], [address], 09/02/2024 08:32:03 09/01/2009/02/2024 LIPID PANEL HDL cholesterol 51 mg/dL >39 Not Available [facility] ([facility]) [address] [facility], [place], [address], 09/02/2024 08:32:03 09/01/2009/02/2024 LIPID PANEL VLDL cholesterol isrrael 26 mg/dL 5-40 Not Available [facility] ([facility]) [address] [place], [address], 09/02/2024 08:32:03 09/01/2009/02/2024 LIPID PANEL LDL chol calc ([facility]) 80 mg/dL 0-99 Not Available [facility] ([facility]) [address] [facility], [place], [address], 09/02/2024 08:32:03 09/01/2009/02/2024 COMP. METAB OLIC PANEL (14) glucose 98 mg/dL 70-99 Not Available [facility] ([facility]) [address] [place], [address], 09/02/2024 08:32:04 09/01/20 24 09/02/2024 COMP. METAB OLIC PANEL (14) BUN 21 mg/dL 8-27 Not Available [facility] ([facility]) [address] [facility], [place], [address], 09/02/2024 08:32:04 09/01/20 24 09/02/2024 COMP. METAB OLIC PANEL (14) creatinine 1.09 mg/dL 0.57-1 .00 above high normal Not Available [facility] ([facility]) [address] [facility], [place], [address], 09/02/2024 08:32:04 09/01/20 24 09/02/2024 COMP. METAB OLIC PANEL (14) eGFR 55 mL/mi n/1.7 3 >59 below low normal Not Available [facility] ([facility]) [address] [facility], [place], [address], 09/02/2024 08:32:04 09/01/20 24 09/02/2024 COMP. METAB OLIC PANEL (14) BUN/creatini ne ratio 19 12-28 Not Available [facility] ([facility]) [address] [place], [address], 09/02/2024 08:32:04 09/01/20 24 09/02/2024 COMP. METAB OLIC PANEL (14) sodium 143 mmol/ L 134-14 4 Not Available [facility] ([facility]) [address] [place], [address], 09/02/2024 08:32:04 09/01/20 24 09/02/2024 COMP. METAB OLIC PANEL (14) potassium 4.6 mmol/ L 3.5-5. 2 Not Available [facility] ([facility]) [address] [facility], [place], [address], 09/02/2024 08:32:04 09/01/20 24 09/02/2024 COMP. METAB OLIC PANEL (14) chloride 104 mmol/ L 96-106 Not Available [facility] ([facility]) [address] [facility] [place], [address], 09/02/2024 08:32:04 09/01/20 24 09/02/2024 COMP. METAB OLIC PANEL (14) carbon dioxide, total 25 mmol/ L 20-29 Not Available [facility] ([facility]) [address] [facility], [place], [address], 09/02/2024 08:32:04 09/01/20 24 09/02/2024 COMP. METAB OLIC PANEL (14) calcium 10.9 mg/dL 8.7-10 .3 above high normal Not Available [facility] ([facility]) [address] [facility], [place], [address], 09/02/2024 08:32:04 09/01/20 24 09/02/2024 COMP. METAB OLIC PANEL (14) protein, total 7.0 g/dL 6.0-8. 5 Not Available [facility] ([facility]) [address] [facility] [place], [address], 09/02/2024 08:32:04 09/01/20 24 09/02/2024 COMP. METAB OLIC PANEL (14) albumin 4.7 g/dL 3.9-4. 9 Not Available [facility] ([facility]) [address] [facility] [place], [address], 09/02/2024 08:32:04 09/01/20 24 09/02/2024 COMP. METAB OLIC PANEL (14) globulin, total 2.3 g/dL 1.5-4. 5 Not Available [facility] ([facility]) [address] [facility] [place], [address], 09/02/2024 08:32:04 09/01/20 24 09/02/2024 COMP. METAB OLIC PANEL (14) bilirubin, total 0.4 mg/dL 0.0-1. 2 Not Available [facility] ([facility]) [address] [facility], [place], [address], 09/02/2024 08:32:04 09/01/2009/02/2024 COMP. METAB OLIC PANEL (14) alkaline phosphatase 139 IU/L 44-121 above high normal Not Available [facility] ([facility]) [address] [facility], [place], [address], 09/02/2024 08:32:04 09/01/20 24 09/02/2024 COMP. METAB OLIC PANEL (14) AST (SGOT) 21 IU/L 0-40 Not Available [facility] ([facility]) [address] [facility], [place], [address], 09/02/2024 08:32:04 09/01/20 24 09/02/2024 COMP. METAB OLIC PANEL (14) ALT (SGPT) 19 IU/L 0-32 Not Available [facility] ([facility]) [address] [facility], [place], [address], 09/02/2024 08:32:04 09/01/20 24 09/02/2024 CBC WITH DIFFE RENTI AL/PL ATELE T WBC 10.3 x10e3 /uL 3.4-10 .8 Not Available [facility] ([facility]) [address] [facility], [place], [address], 09/02/2024 08:32:06 09/01/20 24 09/02/2024 CBC WITH DIFFE RENTI AL/PL ATELE T RBC 4.61 x10e6 /uL 3.77-5 .28 Not Available [facility] ([facility]) [address] [facility], [place], [address], 09/02/2024 08:32:06 09/01/20 24 09/02/2024 CBC WITH DIFFE RENTI AL/PL ATELE T hemoglobin 14.7 g/dL 11.1-1 5.9 Not Available [facility] ([facility]) [address] [facility], [place], [address], 09/02/2024 08:32:06 09/01/2009/02/2024 CBC WITH DIFFE RENTI AL/PL ATELE T hematocrit 44.1 % 34.0-4 6.6 Not Available [facility] ([facility]) [address] [facility], [place], [address], 09/02/2024 08:32:06 09/01/2009/02/2024 CBC WITH DIFFE RENTI AL/PL ATELE T MCV 96 fL 79-97 Not Available [facility] ([facility]) [address] [facility], [place], [address], 09/02/2024 08:32:06 09/01/20 24 09/02/2024 CBC WITH DIFFE RENTI AL/PL ATELE T MCH 31.9 pg 26.6-3 3.0 Not Available [facility] ([facility]) [address] [facility], [place], [address], 09/02/2024 08:32:06 09/01/2009/02/2024 CBC WITH DIFFE RENTI AL/PL ATELE T MCHC 33.3 g/dL 31.5-3 5.7 Not Available [facility] ([facility]) [address] [facility], [place], [address], 09/02/2024 08:32:06 09/01/20 24 09/02/2024 CBC WITH DIFFE RENTI AL/PL ATELE T RDW 13.8 % 11.7-1 5.4 Not Available [facility] ([facility]) [address] [facility], [place], [address], 09/02/2024 08:32:06 09/01/20 24 09/02/2024 CBC WITH DIFFE RENTI AL/PL ATELE T platelets 252 x10e3 /uL 150-45 0 Not Available [facility] ([facility]) [address] [facility], [place], [address], 09/02/2024 08:32:06 09/01/2009/02/2024 CBC WITH DIFFE RENTI AL/PL ATELE T neutrophils 64 % notest ab. Not Available [facility] ([facility]) [address] [facility], [place], [address], 09/02/2024 08:32:06 09/01/2009/02/2024 CBC WITH DIFFE RENTI AL/PL ATELE T lymphs 27 % notest ab. Not Available [facility] ([facility]) [address] [facility], [place], [address], 09/02/2024 08:32:06 09/01/2009/02/2024 CBC WITH DIFFE RENTI AL/PL ATELE T monocytes 6 % notest ab. Not Available [facility] ([facility]) [address] [facility], [place], [address], 09/02/2024 08:32:06 09/01/2009/02/2024 CBC WITH DIFFE RENTI AL/PL ATELE T eos 2 % notest ab. Not Available [facility] ([facility]) [address] [facility], [place], [address], 09/02/2024 08:32:06 09/01/2009/02/2024 CBC WITH DIFFE RENTI AL/PL ATELE T basos 1 % notest ab. Not Available [facility] ([facility]) [address] [facility], [place], [address], 09/02/2024 08:32:06 09/01/2009/02/2024 CBC WITH DIFFE RENTI AL/PL ATELE T neutrophils (absolute) 6.6 x10e3 /uL 1.4-7. 0 Not Available [facility] ([facility]) [address] [facility], [place], [address], 09/02/2024 08:32:06 09/01/20 24 09/02/2024 CBC WITH DIFFE RENTI AL/PL ATELE T lymphs (absolute) 2.8 x10e3 /uL 0.7-3. 1 Not Available [facility] ([facility]) [address] [facility], [place], [address], 09/02/2024 08:32:06 09/01/20 24 09/02/2024 CBC WITH DIFFE RENTI AL/PL ATELE T monocytes(ab solute) 0.6 x10e3 /uL 0.1-0. 9 Not Available [facility] ([facility]) [address] [facility], [place], [address], 09/02/2024 08:32:06 09/01/20 24 09/02/2024 CBC WITH DIFFE RENTI AL/PL ATELE T eos (absolute) 0.2 x10e3 /uL 0.0-0. 4 Not Available [facility] ([facility]) [address] [facility], [place], [address], 09/02/2024 08:32:06 09/01/20 24 09/02/2024 CBC WITH DIFFE RENTI AL/PL ATELE T baso (absolute) 0.1 x10e3 /uL 0.0-0. 2 Not Available [facility] ([facility]) [address] [facility], [place], [address], 09/02/2024 08:32:06 09/01/20 24 09/02/2024 CBC WITH DIFFE RENTI AL/PL ATELE T immature granulocytes 0 % notest ab. Not Available [facility] ([facility]) [address] [facility], [place], [address], 09/02/2024 08:32:06 09/01/20 24 09/02/2024 CBC WITH DIFFE RENTI AL/PL ATELE T immature grans (abs) 0.0 x10e3 /uL 0.0-0. 1 Not Available [facility] ([facility]) [address] [facility], [place], [address], 09/02/2024 08:32:06 09/11/20 24 09/11/2024 COLOG UARD cologuard result reportable NEGATI VE negati ve normal NEGAT STEPHANIE TEST RESUL T. A negat stephanie Colog uard resul t indic ates a low likel ihood that a color ectal cance r (CRC) or advan kenzie adeno ma (wicho omato us polyp s with more advan kenzie pre-m align ant featu res) is prese nt. The chanc e that a perso n with a negat stephanie Colog uard test has a color ectal cance r is less than 1 in 1500 (nega tive predi ctive value >99.9 %) or has an advan kenzie adeno ma is less than 5.3% (nega tive predi ctive value 94.7% ). These data are based on a prosp ectiv e cross -sect ional study of ,00 0 indiv idual s at home ge risk for color ectal cance r who were scree cherise with both Colog uard and colon oscop y. (Rio Michele. et al, N Engl J Med 2014; 370(1 4):12 86-12 97) The gabe l value (refe rence range ) for this assay is negat stephanie. COLOG UARD RE-SC REENI NG RECOM MENDA TION: Perio dic color ectal cance r scree jose is an impor tant part of preve ntive healt hcare for asymp tomat ic indiv idual s at home ge risk for color ectal cance r. Follo wing a negat stephanie Colog uard resul t, the Ameri can Cance r Socie ty and U.S. Multi -Soci ety Task Force scree jose guide lines recom mend a Colog uard re-sc reeni ng inter charles of 3 years . Refer ences : Ameri can Cance r Socie ty Guide line for Color ectal Cance r Scree jose: https ://mary w.can cer.o rg/ca ncer/ colon -rect al-ca ncer/ detec tion- diagn osis- stagi ng/ac s-rec ommen datio ns.ht ml.; Nas DOUGEHRTY, Catherine NGO, Conor BardalesK, Color ectal Cance r Scree jose: Recom menda tions for Physi cians and Patie nts from the U.S. Multi -Soci ety Task Force on Color ectal Cance r Scree joseMandi ponce y 2017; 112:1 016-1 030. TEST DESCR IPTIO N: [place] site algor ithmi c therese sis of stool DNA-b iohonorio kers with hemog lobin immun oassa y. Quant itati ve value s of indiv idual bioma rkers are not repor table and are not assoc iated with ind idual bioma rker resul t refer ence range s. Colog uard is inten ded for color ectal cance r scree jose of adult s of eithe r sex, 45 years or older , who are at [facility] for color ectal cance r (CRC) . Colog uard has been appro tucker for use by the U.S. FDA. The perfo rmanc e of Colog uard was estab lishe d in a cross secti onal study of [facility] adult s aged 50-84 . Colog uard perfo rmanc e in patie nts ages 45 to 49 years was estim ated by sub-g roup therese sis of near- age group s. Colon oscop ies perfo rmed for a posit stephanie resul t may find as the most clini jennyfer signi ficesau t lesio n: color ectal cance r [4.0% ], advan kenzie adeno ma (incl uding sessi le truman huber polyp s great er than or equal to 1cm diame ter) [20%] or non- advan kenzie adeno ma [31%] ; or no color ectal neopl melvi [45%] . These estim ates are deriv ed from a prosp ectiv e cross -sect ional scree jose study of 10,00 0 indiv idual s at [facility] risk for color ectal cance r who were scree cherise with both Colog uard and colon oscop y. (Rio Peres et al, N Engl J Med 2014; 370(1 4):12 86-12 97.) Colog uard may produ ce a false negat stephanie or false posit stephanie resul t (no color ectal cance r or preca ncero us polyp prese nt at colon oscop y follo w up). A negat stephanie Colog uard test resul t does not guara ntee the absen ce of CRC or advan kenzie adeno ma (pre- cance r). The curre nt Colog uard scree jose inter charles is every 3 years . (Amer ican Cance r Socie ty and U.S. Multi -Soci ety Task Force ). Colog uard perfo rmanc e data in a 10,00 0 patie nt pivot al study using colon oscop y as the refer ence metho d can be acces sed at the follo wing locat ion: www.e xactl abs.c om/re sulnayla . Addit ional descr iptio n of the Colog uard test proce ss, warni ngs and preca ution s can be found at www.c yesyu claudia.c om. Not Available [facility] (Cologuard Orders Only) [address], [place], [address], 09/20/2024 02:34:08 12/29/19 25 12/30/2024 LIPID PANEL cholesterol, total 138 mg/dL 100-19 9 Not Available [facility] ([facility]) [address] [facility], [place], [address], 12/30/2024 06:25:35 12/29/19 25 12/30/2024 LIPID PANEL triglyceride s 86 mg/dL 0-149 Not Available [facility] ([facility]) [address] [facility], [place], [address], 12/30/2024 06:25:35 12/29/19 25 12/30/2024 LIPID PANEL HDL cholesterol 50 mg/dL >39 Not Available [facility] ([facility]) [address] [place], [address], 12/30/2024 06:25:35 12/29/19 25 12/30/2024 LIPID PANEL VLDL cholesterol isrrael 16 mg/dL 5-40 Not Available [facility] ([facility]) [address] [place], [address], 12/30/2024 06:25:35 12/29/19 25 12/30/2024 LIPID PANEL LDL chol calc ([facility]) 72 mg/dL 0-99 Not Available [facility] ([facility]) [address] [place], [address], 12/30/2024 06:25:35 12/29/19 25 12/30/2024 COMP. METAB OLIC PANEL (14) glucose 101 mg/dL 70-99 above high normal Not Available [facility] ([facility]) [address] [place], [address], 12/30/2024 06:25:36 12/29/19 25 12/30/2024 COMP. METAB OLIC PANEL (14) BUN 29 mg/dL 8-27 above high normal Not Available [facility] ([facility]) [address] [place], [address], 12/30/2024 06:25:36 12/29/19 25 12/30/2024 COMP. METAB OLIC PANEL (14) creatinine 1.43 mg/dL 0.57-1 .00 above high normal Not Available [facility] ([facility]) [address] [place], [address], 12/30/2024 06:25:36 12/29/19 25 12/30/2024 COMP. METAB OLIC PANEL (14) eGFR 40 mL/mi n/1.7 3 >59 below low normal Not Available [facility] ([facility]) [address] [place], [address], 12/30/2024 06:25:36 12/29/19 25 12/30/2024 COMP. METAB OLIC PANEL (14) BUN/creatini ne ratio 20 - Not Available [facility] ([facility]) [address] [place], [address], 12/30/2024 06:25:36 12/29/19 25 12/30/2024 COMP. METAB OLIC PANEL (14) sodium 142 mmol/ L 134-14 4 Not Available [facility] ([facility]) [address] [place], [address], 12/30/2024 06:25:36 12/29/19 25 12/30/2024 COMP. METAB OLIC PANEL (14) potassium 4.5 mmol/ L 3.5-5. 2 Not Available [facility] ([facility]) [address] [place], [address], 12/30/2024 06:25:36 12/29/19 25 12/30/2024 COMP. METAB OLIC PANEL (14) chloride 104 mmol/ L 96-106 Not Available [facility] ([facility]) [address] [place], [address], 12/30/2024 06:25:36 12/29/19 25 12/30/2024 COMP. METAB OLIC PANEL (14) carbon dioxide, total 25 mmol/ L 20-29 Not Available [facility] ([facility]) [address] [place], [address], 12/30/2024 06:25:36 12/29/19 25 12/30/2024 COMP. METAB OLIC PANEL (14) calcium 10.0 mg/dL 8.7-10 .3 Not Available [facility] ([facility]) [address] [place], [address], 12/30/2024 06:25:36 12/29/19 25 12/30/2024 COMP. METAB OLIC PANEL (14) protein, total 6.7 g/dL 6.0-8. 5 Not Available [facility] ([facility]) [address] [facility] [place], [address], 12/30/2024 06:25:36 12/29/19 25 12/30/2024 COMP. METAB OLIC PANEL (14) albumin 4.3 g/dL 3.9-4. 9 Not Available [facility] ([facility]) [address] [facility] [place], [address], 12/30/2024 06:25:36 12/29/19 25 12/30/2024 COMP. METAB OLIC PANEL (14) globulin, total 2.4 g/dL 1.5-4. 5 Not Available [facility] ([facility]) [address] [facility] [place], [address], 12/30/2024 06:25:36 12/29/19 25 12/30/2024 COMP. METAB OLIC PANEL (14) bilirubin, total 0.4 mg/dL 0.0-1. 2 Not Available [facility] ([facility]) [address] [facility] [place], [address], 12/30/2024 06:25:36 12/29/19 25 12/30/2024 COMP. METAB OLIC PANEL (14) alkaline phosphatase 149 IU/L 44-121 above high normal Not Available [facility] ([facility]) [address] [facility] [place], [address], 12/30/2024 06:25:36 12/29/19 25 12/30/2024 COMP. METAB OLIC PANEL (14) AST (SGOT) 23 IU/L 0-40 Not Available [facility] ([facility]) [address] [facility] [place], [address], 12/30/2024 06:25:36 12/29/19 25 12/30/2024 COMP. METAB OLIC PANEL (14) ALT (SGPT) 20 IU/L 0-32 Not Available [facility] ([facility]) [address] [facility], [place], [address], 12/30/2024 06:25:36 12/29/1912/29/2024 CBC WITH DIFFE RENTI AL/PL ATELE T WBC 10.1 x10e3 /uL 3.4-10 .8 Not Available [facility] ([facility]) [address] [facility], [place], [address], 12/30/2024 06:25:37 12/29/1912/29/2024 CBC WITH DIFFE RENTI AL/PL ATELE T RBC 4.59 x10e6 /uL 3.77-5 .28 Not Available [facility] ([facility]) [address] [facility], [place], [address], 12/30/2024 06:25:37 12/29/1912/29/2024 CBC WITH DIFFE RENTI AL/PL ATELE T hemoglobin 14.0 g/dL 11.1-1 5.9 Not Available [facility] ([facility]) [address] [place], [address], 12/30/2024 06:25:37 12/29/19 25 12/29/2024 CBC WITH DIFFE RENTI AL/PL ATELE T hematocrit 42.4 % 34.0-4 6.6 Not Available [facility] ([facility]) [address] [place], [address], 12/30/2024 06:25:37 12/29/1912/29/2024 CBC WITH DIFFE RENTI AL/PL ATELE T MCV 92 fL 79-97 Not Available [facility] ([facility]) [address] [place], [address], 12/30/2024 06:25:37 12/29/19 25 12/29/2024 CBC WITH DIFFE RENTI AL/PL ATELE T MCH 30.5 pg 26.6-3 3.0 Not Available [facility] ([facility]) [address] [facility], [place], [address], 12/30/2024 06:25:37 12/29/19 25 12/29/2024 CBC WITH DIFFE RENTI AL/PL ATELE T MCHC 33.0 g/dL 31.5-3 5.7 Not Available [facility] ([facility]) [address] [facility], [place], [address], 12/30/2024 06:25:37 12/29/19 25 12/29/2024 CBC WITH DIFFE RENTI AL/PL ATELE T RDW 13.1 % 11.7-1 5.4 Not Available [facility] ([facility]) [address] [facility], [place], [address], 12/30/2024 06:25:37 12/29/19 25 12/29/2024 CBC WITH DIFFE RENTI AL/PL ATELE T platelets 226 x10e3 /uL 150-45 0 Not Available [facility] ([facility]) [address] [place], [address], 12/30/2024 06:25:37 12/29/19 25 12/29/2024 CBC WITH DIFFE RENTI AL/PL ATELE T neutrophils 66 % notest ab. Not Available [facility] ([facility]) [address] [place], [address], 12/30/2024 06:25:37 12/29/19 25 12/29/2024 CBC WITH DIFFE RENTI AL/PL ATELE T lymphs 21 % notest ab. Not Available [facility] ([facility]) [address] [place], [address], 12/30/2024 06:25:37 12/29/19 25 12/29/2024 CBC WITH DIFFE RENTI AL/PL ATELE T monocytes 9 % notest ab. Not Available [facility] ([facility]) [address] [place], [address], 12/30/2024 06:25:37 12/29/19 25 12/29/2024 CBC WITH DIFFE RENTI AL/PL ATELE T eos 3 % notest ab. Not Available [facility] ([facility]) [address] [facility], [place], [address], 12/30/2024 06:25:37 12/29/19 25 12/29/2024 CBC WITH DIFFE RENTI AL/PL ATELE T basos 1 % notest ab. Not Available [facility] Lab) [address] [place], [address], 12/30/2024 06:25:37 12/29/19 25 12/29/2024 CBC WITH DIFFE RENTI AL/PL ATELE T neutrophils (absolute) 6.7 x10e3 /uL 1.4-7. 0 Not Available [facility] ([facility]) [address] [place], [address], 12/30/2024 06:25:37 12/29/19 25 12/29/2024 CBC WITH DIFFE RENTI AL/PL ATELE T lymphs (absolute) 2.1 x10e3 /uL 0.7-3. 1 Not Available [facility] ([facility]) [address] [place], [address], 12/30/2024 06:25:37 12/29/19 25 12/29/2024 CBC WITH DIFFE RENTI AL/PL ATELE T monocytes(ab solute) 0.9 x10e3 /uL 0.1-0. 9 Not Available [facility] ([facility]) [address] [place], [address], 12/30/2024 06:25:37 12/29/19 25 12/29/2024 CBC WITH DIFFE RENTI AL/PL ATELE T eos (absolute) 0.3 x10e3 /uL 0.0-0. 4 Not Available [facility] ([facility]) [address] [facility], [place], [address], 12/30/2024 06:25:37 12/29/1912/29/2024 CBC WITH DIFFE RENTI AL/PL ATELE T baso (absolute) 0.1 x10e3 /uL 0.0-0. 2 Not Available [facility] ([facility]) [address] [facility], [place], [address], 12/30/2024 06:25:37 12/29/1912/29/2024 CBC WITH DIFFE RENTI AL/PL ATELE T immature granulocytes 0 % notest ab. Not Available [facility] ([facility]) [address] [facility], [place], [address], 12/30/2024 06:25:37 12/29/19 25 12/29/2024 CBC WITH DIFFE RENTI AL/PL ATELE T immature grans (abs) 0.0 x10e3 /uL 0.0-0. 1 Not Available [facility] ([facility]) [address] [facility], [place], [address], 12/30/2024 06:25:37 Result Notes None recorded. Problems Name Problem SNOMED Code Status Onset Date Resolution Date Notes Provider Name and Address Organization Details Recorded Time Hyperlipidemia 70865622 Active 2023 Sindy Morris MA null, [place] - [facility] 4 11:45:11 Screening mammography Active 2023 Sindy Morris MA null, [place] - [facility] 4 11:45:11 Anxiety 70503060 Active 2023 Yelitza Franco MD Attn: Shane ponce,[address] [place], [address] [place] [address] - [facility] 4 17:58:06 Gastroesophage al reflux disease without esophagitis 210394779 Active 2023 Yelitza Franco MD Attn: Shane ponce,[address] [place], [address], [place] - [facility] 4 17:58:07 Vitamin D below reference range 286538830 Active 2023 Yelitza Franco MD Attn: Shane ponce,[address] [facility], [place], [address], [place] - [facility] 4 17:58:08 Fibromyalgia 965034100 Active 2023 Yelitza Franco MD Attn: Shane ponce,[address] [facility], [place], [address], [place] - [facility] 4 17:58:09 Migraine 86051268 Active 2023 Yelitza Franco MD Attn: Shane ponce,[address] [facility], [place], [address], [place] - [facility] 4 17:58:12 Essential hypertension 95730300 Active 2023 Yelitza Franco MD Attn: Shane ponce,[address] [facility], [place], [address], [place] - [facility] 4 17:58:13 Hypercalcemia 03679007 Active 2023 MARIBELL Powers, [place] - [facility] 4 15:10:50 Problem Notes None recorded. Procedures Surgical History Date Name Laterality Status Provider Name and Address Organization Details Recorded Time Cholecystectomy completed Sakshi mendoza [place] - [facility] 03/06/2024 10:51:49 section completed Sakshi Trinidad [place] [facility] 03/06/2024 10:51:57 Total hysterectomy completed Caro Trinidad MA [place] - [facility] 03/06/2024 10:52:08 Imaging Results None recorded. Procedure Notes None recorded. Medical Equipment None Reported. Allergies Allergen ID Allergen Name Allergen Category Reaction Reaction Severity Criticality Documentation Date Start Date Code Code System Note Provider Name and Address Organization Details Recorded Time 055814 Product containin g penicilli n (product) medicatio n Not available Not available Not available 03/06/2024 52905 8001 SNOMED MARIBELL Thompson, [place] - [facility] 4 10:48:07 Medications Name Sig Start Date Stop Date Status Note LastModified by Organization Details LastModified Time gabapentin 600 mg tablet TAKE 1 TABLET BY MOUTH THREE TIMES DAILY active Not Available Not Available No t Available azithromyci n 250 mg tablet TAKE 2 TABLETS BY MOUTH FOR 1 DAY THEN TAKE 1 TABLET BY MOUTH DAILY FOR 4 DAYS active Not Available Not Available No t Available nitroglycer in 0.[address] 1 tablet every day by sublingua l route as needed. active Not Available Not Available No t Available rizatriptan 10 mg tablet TAKE 1 TABLET BY MOUTH AT ONSET OF HEADACHE. NO MORE THAN 3 TABLETS IN 24 HOURS active Not Available Not Available No t Available sulfamethox azole 800 mg-trimetho prim 160 mg tablet TAKE 1 TABLET BY MOUTH TWICE DAILY FOR 7 DAYS 12/29 completed Not Available Not Available Not Available famotidine 20 mg tablet TAKE 1 TABLET BY MOUTH TWICE DAILY active Not Available Not Available No t Available esomeprazol e magnesium 40 mg capsule,del ayed release TAKE 1 CAPSULE BY MOUTH EVERY DAY active Not Available Not Available No t Available diclofenac sodium 75 mg tablet,geovani yed release TAKE 1 TABLET BY MOUTH TWICE DAILY active Not Available Not Available No t Available lorazepam 1 mg tablet TAKE 1 TABLET BY MOUTH TWICE DAILY active Not Available Not Available No t Available methylpredn isolone 4 mg tablets in a dose pack FOLLOW PACKAGE DIRECTION S 03/06 completed Not Available Not Available Not Available cyclobenzap rine 5 mg tablet TAKE 1 TABLET BY MOUTH EVERY 8 HOURS NEEDED 12/29 completed Not Available Not Available Not Available rosuvastati n 20 mg tablet TAKE 1 TABLET BY MOUTH EVERY DAY active Not Available Not Available No t Available metoprolol tartrate 25 mg tablet TAKE 1 TABLET BY MOUTH TWICE DAILY active Not Available Not Available No t Available Farxiga 5 mg tablet Take 1 tablet every day by oral route. 2024 active Not Available Not Available Not Avai lable Vitals Date Recorded Body height Body mass index (BMI) Body weight Heart rate Oxygen saturation Oxygen saturation in Arterial blood by Pulse oximetry Systolic And Diastolic Provider Name and Address Organization Details Last Updated DateTime 5 165.1 cm 32.1 kg/m2 27479.9 7 g 60 /min 99 % 99 % 112/62 mm[Hg] Kristen Dexter [facility] - [facility] 5 11:36:50 Date Recorded Body height Body mass index (BMI) Body weight Heart rate Oxygen saturation Oxygen saturation in Arterial blood by Pulse oximetry Systolic And Diastolic Provider Name and Address Organization Details Last Updated DateTime 165.1 cm 31.8 kg/m2 59449.2 2 g 54 /min 99 % 99 % 122/76 mm[Hg] Sakshi Trinidad MA [facility] 4 10:55:01 Date Recorded Body height Body mass index (BMI) Body weight Heart rate Oxygen saturation Oxygen saturation in Arterial blood by Pulse oximetry Systolic And Diastolic Provider Name and Address Organization Details Last Updated DateTime 4 165.1 cm 29.5 kg/m2 66832.2 1 g 60 /min 97 % 97 % 120/68 mm[Hg] Sakshi Trinidad MA [facility] S[facility] 11:44:20 Social History Question Answer Notes LastModified by Organizat ion Details LastModified Time Tobacco Smoking Status Former [facility] 03/06/2024 10:50:03 Do You Have An Advance Directive? Yes Information not available 03/06/2024 Are You Blind Or Do You Have Difficulty Seeing? Yes Glasses Information not available 03/06/2024 What Is Your Level Of Caffeine Consumption? Heavy Tea, Coffee Information not available 03/06/2024 In The 14 Days Before Symptom Onset, Have You Had Close Contact With A Laboratory-confir med COVID-19 While That Case Was Ill? No Information not available 03/06/2024 In The 14 Days Before Symptom Onset, Have You Had Close Contact With A Person Who Is Under Investigation For COVID-19 While That Person Was Ill? No Information not available 03/06/2024 Have You Been To An Area Known To Be High Risk For COVID-19? No Information not available 03/06/2024 Are You Deaf Or Do You Have Serious Difficulty Hearing? No Information not available 03/06/2024 What Type Of Diet Are You Following? REGULAR Information not available 03/06/2024 Are There Any Guns Present In Your Home? No Information not available 03/06/2024 What Was The Date Of Your Most Recent Tobacco Screening? 12/29/2024 [email or web address] Information not available 12/29/2024 What Is Your Current Pack Years? 10packyears Information not available 03/06/2024 What Is Your Relationship Status? Information not available 03/06/2024 Do You Use Your Seat Belt Or Car Seat Routinely? Yes Information not available 03/06/2024 Do You Have Smoke And Carbon Monoxide Detectors In Your Home? Yes Information not available 03/06/2024 How Much Tobacco Do You Smoke? 1 PPD Information not available 03/06/2024 Do You Use Sunscreen Routinely? No Information not available 03/06/2024 Has Tobacco Cessation Counseling Been Provided? No Information not available 09/01/2024 On What Date Was Tobacco Cessation Counseling Provided? 09/01/2024 Information not available 09/01/2024 How Many Years Have You Smoked Tobacco? 36 Information not available 03/06/2024 Sex: Female Functional Status Question Answer Note LastModified by Organizat ion Details LastModified Time Do you use any illicit or recreational drugs? No Information not available 03/06/2024 Do you or have you ever used any other forms of tobacco or nicotine? No Information not available 03/06/2024 What is your level of alcohol consumption? None Information not available 03/06/2024 Are you currently employed? No Information not available 03/06/2024 Are you able to care for yourself? Yes Information not available 03/06/2024 What is your exercise level? None Information not available 03/06/2024 Mental Status Question Answer Note LastModified by Organizat ion Details LastModified Time Do you feel stressed (tense, restless, nervous, or anxious, or unable to sleep at night)? [id number] All the time Information not available 03/06/2024 Family History Relationship Description Onset Age of this Age Resolved Age Notes LastModified by Organization Details LastModified Time Mother Malignant tumor of breast mebyma Not available 2023 10:49:04 Mother Cerebrovascu lar accident mebyma Not available 01/2024 10:49:10 Mother Heart disease mebyma Not available 2023 10:49:16 Mother Hypertensive disorder mebyma Not available 2023 10:49:21 Medical History Condition Response High Blood Pressure Y Anxiety Disorder Y Acid Reflux (GERD) Y High Cholesterol Y Headaches Y Gynecological HistoryNo gynecological history recorded. Obstetrics History GPAL:G 0 P 0 0 0 0 Immunizations Vaccine Type Date Status Note Provider Nam e and Address Organization Details Recorded Time zoster live 07/20/2016 completed Eve Bolden MA null, [place] - [facility] 08/25/2024 15:30:58 Influenza, high-dose, trivalent, PF 09/01/2024 completed Yelitza Franco MD Attn: [address]ing[address] [place], [address], [facility] - SI 09/01/2024 13:25:05 Past Encounters Encounter ID Performer Location Encounter Start Date Encounter Closed Date Diagnosis/Indication Diagnosis SNOMED-CT Code Diagnosis ICD10 Code Diagnosis Note [id number] Yelitza Franco MD [facility] (Adult Med) [address] [place] [phone] 03/06/2024 10:38:02 03/06/2024 11:44:30 Hyperlipidemia 10137214 E78.5 Screening mammography 24 032791 Z12.31 Screening for malignant neoplasm of colon 725906237 Z12.11 Long-term drug therapy 926951693 Z79.899 Anxiety 71350495 F41.9 Gastroesop hageal reflux disease without esophagitis 553384098 K21.9 Vitamin D below reference range 782280492 E55.9 Fibromyalgia 644597022 M 79.7 Migraine 23284667 G43.90 9 Essential hypertension 64526775 I10 [id number] Yelitza Franco MD [facility] (Adult Med) [address] [place] [phone] 09/01/2024 11:28:38 09/01/2024 12:33:43 Overweight 119406568 E66.3 Essential hypertension 08516942 I10 Hyperlipidemia 93930965 E78.5 Chest pain 49524814 R07. 9 Screening for malignant neoplasm of colon 866537850 Z12.11 Screening mammography 24 185536 Z12.31 Administra tion of influenza vaccine 28018825 Z23 Vitamin D below reference range 750309632 E55.9 Migraine 34252746 G43.90 9 Gastroesop hageal reflux disease without esophagitis 293421162 K21.9 Fibromyalgia 523765446 M 79.7 Anxiety 68627008 F41.9 [id number] Yelitza Franco MD [facility] (Adult Med) [address] [place] [phone] 12/29/2024 11:23:31 12/29/2024 12:02:24 Body mass index 30+ - obesity 124766920 Z68.32 Obesity 716553126 E66.9 Essential hypertension 51638119 I10 Hyperlipidemia 83536111 E78.5 Bronchitis 33448559 J40 Anxiety 43978522 F41.9 Migraine 26236927 G43.90 9 Gastroesop hageal reflux disease without esophagitis 971722565 K21.9 Fibromyalgia 068634957 M 79.7 Pneumococc al vaccination declined 880796298 Z28.21 Tetanus va ccination declined by patient 267196912 Z28.21 Health Concerns Section Related Observation LastModified by Organization Detai ls LastModified Time None Recorded Concern Status LastModified by Organization Details LastModified Time None Recorded Advance Directives Directive Y: Payers Insurance Date Sequence Insurance Name Policy Number Policy Giron Covered Member ID Giron Member ID Guarantor Name 12/29/2024 1 [employer] (PPO) [id number] Ayde Navarro [id number] Ayde Navarro 03/06/2024 1 *SELF PAY* Tomás Navarro 09/01/[address] [facility] (MEDICARE REPLACEMENT/ ADVANTAGE - HMO) [id number] Ayde Navarro [id number] Ayde Navarro 04/24/[address] [facility] (MEDICARE REPLACEMENT/ ADVANTAGE - HMO) [id number] Ayde Navarro [id number] Ayde Navarro Notes Date Note Type Note Provider Name and Address Organization Details Recorded Time 03/06/2024 text/html 68-year-old follow-up of medical problems GERD hyperlipidemia anxiety low vitamin D fibromyalgia migraine hypertension states that she has been doing reasonably well with no new interval developments or complaints Yelitza Franco MD Attn: [address]ing[address] [place], [address], [facility] - [facility] 03/22/2024 17:58:50 09/01/2024 text/html hypertension no headache or dizziness hyperlipidemia tries to follow a low-fat diet overweight she has had trouble losing some lb. She keeps nitroglycerin on hand for jaw pain has not used it in quite some time but likes to keep it on hand. Anxiety has been stable on current medical regimen osteoarthritis seems to be doing okay on her diclofenac GERD no nausea no vomiting fibromyalgia doing well on gabapentin. Migraines stable low vitamin-D she supplements Yelitza Franco MD Attn: Accounting[address] [facility], [place], [address], [facility] - [facility] 09/01/2024 13:26:57 12/29/2024 text/html hypertension blo od pressure is controlled no complaints. Migraines have been stable anxiety doing fine on current medical regimen GERD no nausea no vomiting obesity could stand to lose some weight he has had some bronchitis symptoms for about 10-14 days Yelitza Franco MD Attn: Accounting[address] [facility], [place], [address], [facility] - [facility] 01/02/2025 14:41:29 OBGyn Episode No OBEpisode recorded.
--- OUTSIDE RECORDS SUMMARY | 2025-05-12 18:55 | XMS_ITS | Continuity of Care Document ---
Author Organization [facility] Address [address] [place] [address] Phone Care Team Providers Care Share Dairy Farmer Name Role Phone Russel Estrada Unavailable Unavailable Advance Directives Directive Yes / No Effective Date File Name No Information Encounters Encounter Description Practice Location Reason(s) For Visit Diagnoses Date Provider Providers Copied on Encounter [facility], [address] [place] [address], Formerly [facility], tel:[phone] *[facility] No Information Natalie Goode. [address] [place] [address], [facility], [place]. tel:[phone] Family History Family Member Type Diagnosis Age At Onset No Information Payers Payer name Insurance type Covered republican ID Authoriza tion(s) No Information Social History Type Description Quantity Date Captured Comments Sex Female Smoking Status No Information Chief Complaint And Reason For Visit No Information Reason For Referral Reason For Referral No Information History Of Present Illness Encounter Date Complaint History Of Prese nt Illness No Information Functional Status Date Functional Assessmen t No Information Instructions Date Instruction Additional Infor mation No Information Assessments Type Assessment Date No Information Patient Care Teams Name Effective Dates (start - stop) Status Members No Information
--- OUTSIDE RECORDS SUMMARY | 2025-05-12 18:55 | XMS_ITS | Clinical Summary ---
Author Organization [facility] Address [address] [place] [address] Care Team Providers Care Tube And Rod Straightener Name Role Phone Braden Franco MD Primary Care Provider [phone] Allergies Active Allergy Reactions Criticality Noted Date Comments Penicillins Medications acetaminophen-c odeine (TYLENOL with CODEINE #3) 300-30 mg per tablet TK 1 T PO TID PRN 0 9 Active cyclobenzaprine (FLEXERIL) 10 mg tablet TK 1 T PO Q NIGHT. DO NOT DRIVE OR OPERATE HEAVY MACHINERY AFTER TAKING. STEPHANIE [address] (VOLTAREN) 75 mg EC tablet TK 1 T PO BID [address] (NexIUM) 40 mg capsule TK 1 C PO QD 1 9 Active gabapentin (NEURONTIN) 600 mg tablet TK 1 T PO TID 1 9 Active ibuprofen (ADVIL,MOTRIN) 800 mg tablet TK 1 T PO Q 8 H WF PRN 0 9 Active LORazepam (ATIVAN) 0.5 mg tablet TK 2 TS PO BID 0 9 Active metoprolol (LOPRESSOR) 25 mg tablet TK 1 T PO BID 1 9 Active rizatriptan (MAXALT) 10 mg tablet 2 9 Active rosuvastatin (CRESTOR) 20 mg tablet TK 1 T PO QD 1 9 Active traMADol (ULTRAM) 50 mg tablet TK 2 TS PO Q 8 H PRN 0 9 Active Active Problems Problem Noted Date Diagnosed Date Primary osteoarthritis of left knee 06/23/2019 Hypertension 03/20/2014 Overview (02/08/2017): HTN (hypertension) Surgical History Surgery Date Site/Laterality Comments APPENDECTOMY 1974 Appendectomy CHOLECYSTECTOMY 1978 Cholecystectomy SECTION 1975 section SECTION 1977 section SECTION 1979 section PARTIAL HYSTERECTOMY 1992 partial hysterectomy TOTAL ABDOMINAL HYSTERECTOMY W/ BILATERAL SALPINGOOPHORECTOMY 1995 GAETANO/BSO Medical History Medical History Date Comments Hypertension Hypercholesteremia Gastric reflux Migraines Social History Tobacco Use Types Packs/Day Years Used Date Smoking Tobacco: Former Smokeless Tobacco: Never Alcohol Use Standard Drinks/Week Comments Yes 0 (1 standard drink = 0.6 oz pur e alcohol) Comments Unknown Sex and Gender Information Value Date Recorded Sex Assigned at Not on file 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 Gender Identity Not on file Sexual Orientation Not on file Obstetrics History Last Filed Vital Signs Vital Sign Reading Time Taken Comments Blood Pressure 141/81 06/23/2019 9:43 AM CDT Pulse 64 06/23/2019 9:43 AM CDT Temperature - - Respiratory Rate - - Oxygen Saturation - - Inhaled Oxygen Concentration - - Weight 95.3 kg (210 lb) 06/23/2019 9:43 AM CDT Height 167.6 cm (5' 6) 06/23/2019 9:43 AM CDT Body Mass Index 33.89 06/23/2019 9:43 AM CDT Plan of Treatment Not on file Insurance [facility] MEDICARE ADVANTAGE Care Teams Tube And Rod Straightener Relationship Specialty Start Date End Date Braden Franco MD PCP - General 06/16/18
--- OUTSIDE RECORDS SUMMARY | 2025-05-12 18:55 | XMS_ITS | Referral Summary ---
Author Organization [facility] Address [address] [place] [address] Care Team Providers Care Skull Splitter Name Role Phone Braden Franco MD Primary Care Provider [phone] Allergies Active Allergy Reactions Criticality Noted Date [...] 06/23/2019 Hypertension 03/20/2014 Overview (02/08/2017): HTN (hypertension) Social History Tobacco Use Types Packs/Day Years Used Date Smoking Tobacco: Former Smokeless Tobacco: Never Alcohol Use Standard Drinks/Week Comments Yes 0 (1 standard drink = 0.6 oz pur e alcohol) Comments Unknown Sex and Gender Information Value Date Recorded Sex Assigned at Not on file 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
--- OUTSIDE RECORDS SUMMARY | 2025-05-12 18:55 | XMS_ITS | Clinical Summary ---
Author Organization [facility] Address [address] [place] [address] Phone Care Team Providers Care Senior Systems Programmer Name Role Phone Unavailable Primary Care Provider Unavailabl e Social History Tobacco Use Types Packs/Day Years Used Date Smoking Tobacco: Never Assessed Comments Unknown Sex and Gender Information Value Date Recorded Sex Assigned at Not on file Legal Sex Female 10:26 PM CDT Gender Identity Not on file Sexual Orientation Not on file Plan of Treatment Not on file
--- OUTSIDE RECORDS SUMMARY | 2025-05-12 20:04 | XMS_ITS | Continuity of Care Document ---
Author Organization [facility] Address [address] [place] [address] Phone Care Team Providers Care Truck Repair Supervisor Name Role Phone Russel Estrada Unavailable Unavailable Advance Directives Directive Yes / No Effective Date File Name No Information Encounters Encounter Description Practice Location Reason(s) For Visit Diagnoses Date Provider Providers Copied on Encounter [facility], [address] [place] [address], [facility] hospital, tel:[phone] *[facility] No Information Natalie Goode. [address] [place] [address], [facility], [place]. tel:[phone] Family History Family Member Type Diagnosis Age [...]
--- OUTSIDE RECORDS SUMMARY | 2025-05-12 20:05 | XMS_ITS | Referral Summary ---
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
--- OUTSIDE RECORDS SUMMARY | 2025-05-12 20:05 | XMS_ITS | Clinical Summary ---
Author Organization [facility] Address [address] [place] [address] Phone Care Team Providers Care Livestock Speculator Name Role Phone Unavailable Primary Care Provider [...]
--- OUTSIDE RECORDS SUMMARY | 2025-05-12 20:05 | XMS_ITS | Clinical Summary ---
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
--- NOTE | 2025-05-12 20:49 | PC.NURSE ---
Pt. to CT
[2025-05-12 21:00] VITALS: BP 189/79; PULSE 56; RESP 18; TEMP 36.7; O2SAT 100
[2025-05-12] MEDS: TETANUS,DIPHTHERIA,AC PERTUSSIS ADULT (0.5 ML) BOOSTRIX IM (21:03)
[2025-05-12] MEDS: CEPHALEXIN 500 MG CAPSULE PO (21:05)
[2025-05-12] MEDS: HYDROcodone/acetaminophen (*CRX) 5-325 MG TABLET 1 TAB PO (21:05)
[2025-05-12] MEDS: LIDOCAINE, EPINEPHRINE, TETRACAINE VISCOUS SOLN 3 ML TOPICAL (21:06)
[2025-05-12 21:07] VITALS: BP 189/79; PULSE 57; RESP 14; O2SAT 100
[2025-05-12 22:00] VITALS: BP 135/78; PULSE 53; RESP 18; TEMP 36.7; O2SAT 100
[2025-05-12] MEDS: oxyCODONE HCL (*CRX) 5 MG TAB IR PO (23:50)
[2025-05-12] MEDS: KETOROLAC 30 MG/ML VIAL (*BKC) IM (23:51)
[2025-05-13 00:02] VITALS: BP 174/76; PULSE 58; RESP 20; O2SAT 97
[2025-05-13 00:35] VITALS: BP 168/72; PULSE 55; RESP 16; O2SAT 97
== END 2025-05-13 00:40 | disposition home or self-care (01) ==
PROVIDERS: Emergency Provider Physician Assistant; PCP Internal Medicine
DX: S01.01XA Laceration without foreign body of scalp, initial encounter (principal); S52.692A Other fracture of lower end of left ulna, initial encounter for closed fracture; S02.40FA Zygomatic fracture, left side, initial encounter for closed fracture; Y04.2XXA Assault by strike against or bumped into by another person, initial encounter; Y07.44 Child, perpetrator of maltreatment and neglect; Z23 Encounter for immunization
CPT/HCPCS: 12001; 29125; 70450; 70486; 72125; 73090; 90471; 90715; 96372; 99284; A9270; J1885